=== PATIENT | male | born 1975 | race Caucasian/White ===

== ENCOUNTER 2019-03-18 10:44 | Emergency (ER) | payer OTHER ==
[~2019-03-18] VITALS: Ht 177.8 cm; Wt 83.9 kg
[~2019-03-18 10:44] MED LIST: AMOX1TAB12 PO; KETO10TA2 PO
[2019-03-18] MEDS ORDERED: CLARITIN5 MG (11:20)
== END 2019-03-18 16:10 | disposition home or self-care (01) ==
LOC: ER 10:44
DX: I16.0 Hypertensive urgency (principal); I10 Essential (primary) hypertension; F06.4 Anxiety disorder due to known physiological condition

== ENCOUNTER 2023-04-07 14:53 | Emergency (ER) | payer OTHER ==
[~2023-04-07] VITALS: Ht 177.8 cm; Wt 86.2 kg
[~2023-04-07 14:53] MED LIST changes: +CLARITIN5 MG
== END 2023-04-07 21:55 | disposition home or self-care (01) ==
LOC: ER 14:53
DX: N45.1 Epididymitis (principal)